=== PATIENT | female | born 1950 | race Caucasian/White ===

== ENCOUNTER → 2020-06-04 | Outpatient (CLI) | payer BC ==
--- NOTE | 2020-06-04 14:07 | RAD ---
Examination: Ultrasound kidneys HISTORY: History of microscopic hematuria COMPARISON: None available FINDINGS: The right kidney measures 9.5 x 4.8 x 3.5 cm. The left kidney measures 10.6 x 4.6 x 5.2 cm. No eviden ce of hydronephrosis. Urinary bladder is mildly distended. IMPRESSION: Unremarkable exam. Electronically signed by: Isaiah Dickson MD (06/04/2020 2:04 PM) [id number]
== END ==
LOC: US 12:04
PROVIDERS: ATTEND Family Medicine
DX: R31.29 Other microscopic hematuria (principal); N32.89 Other specified disorders of bladder
CPT/HCPCS: 76770